=== PATIENT | female | born 1990 | race Caucasian/White ===

== ENCOUNTER 2016-03-13 14:32 | Inpatient (IN) | payer MEDICAID ==
[~2016-03-13] VITALS: Ht 149.9 cm; Wt 68.6 kg
[2016-03-13 14:51] VITALS: Ht 149.9 cm; Wt 68.6 kg
[2016-03-13] MEDS ORDERED: PRENAT PO (14:51)
[2016-03-13 14:52] VITALS: BP 102/57; PULSE 65; RESP 20
--- NOTE | 2016-03-13 15:10 | TRIAGE ---
OB Triage Datetime Report Generated by CPN: 03/13/2016 15:09 Datetime: 03/13/2016 14:58 Vaginal Exam Dilatation (cms): 2.0 Effacement (%): 50 Station: -3 Exam By: DAI Cervix, Consistency: Moderate Cervix, Position: Posterior Datetime: 03/13/2016 14:50 Assessment Type: Triage Maternal Assessment Level of Consciousness: Fully Conscious DTR's/Clonus: DTRs 2+; No Clonus Headache: Denies Blurred Vision: No Respiratory Effort: Unlabored; Regular Rhythm; Equal Expansion Breath Sounds, Left: Clear and Equal Breath Sounds, Right: Clear and Equal Nausea/Vomiting: Denies RUQ Epigastric Pain: Denies Lower Extremities Edema: None Degree: None Upper Extremities Edema: None Degree: None Facial Edema: None Fall Risk Assessment History of Falling: (0) No Secondary Diagnosis: (0) No Ambulatory Aid: (0) Bedrest/Nurse Assist IV Therapy: (0) No Gait: (0) Normal/Bedrest/Immobile Mental Status: (0) Oriented to Own Ability Fall Score: 0 Fall Risk Score Definition: No Risk: No action required Datetime: 01/11/2016 10:38 Stage of : OB Triage Maternal Assessment Level of Consciousness: Fully Conscious Headache: Denies Nausea/Vomiting: Denies RUQ Epigastric Pain: Present Pain Assessment Pain Scale: 0 Pain Goal: 0 Datetime: 01/11/2016 10:15 Heart Rate FHR Baseline Rate: 135 Monitor Mode: External US Variability: Moderate 6-25 bpm Accelerations: 15X15 Comments: ega 30.4 Datetime: 01/11/2016 10:13 Pain Presence: None/Denies Pain Assessment Comments: pt. now state she has 0/10 pain. Datetime: 01/11/2016 10:12 Labor Evaluation Monitor Mode: External Quality: Mild Resting Tone [place]: Relaxed Contraction Comments: some uc's noted when first on monitor. pt. denies uc's and now none palpated Datetime: 01/11/2016 10:03 Assessment Type: Triage Maternal Assessment Level of Consciousness: Fully Conscious DTR's/Clonus: DTRs 2+; No Clonus Headache: Denies Blurred Vision: No Respiratory Effort: Unlabored; Regular Rhythm; Equal Expansion Breath Sounds, Left: Clear and Equal Breath Sounds, Right: Clear and Equal Nausea/Vomiting: Denies RUQ Epigastric Pain: Denies Lower Extremities Edema: None Upper Extremities Edema: None Facial Edema: None Fall Risk Assessment History of Falling: (0) No Secondary Diagnosis: (0) No Ambulatory Aid: (0) Bedrest/Nurse Assist IV Therapy: (0) No Gait: (0) Normal/Bedrest/Immobile Mental Status: (0) Oriented to Own Ability Fall Score: 0 Fall Risk Score Definition: No Risk: No action required Datetime: 01/11/2016 10:01 Pain Assessment Pain Scale: 4 Pain Presence: Constant Pain Location: Abdomen Datetime: 01/11/2016 10:00 Time of Arrival: 03/13/2016 14:30 EGA: 39.3 Arrived By: Wheelchair Arrived From: Home Chief Complaint: c/o UC'S SINCE 299 Movement: Present Contractions: Regular Time Contractions Began: 03/13/2016 03:00 Rupture of Membranes: Denies Vaginal Bleeding: Scant Vaginal Discharge: Denies Recent Sexual Intercouse: Denies Abdominal Trauma: Not Applicable Patient Complaints: Contractions; Cramping; Back Pain Time Provider Notified: 03/13/2016 15:09 Provider Notified: LUISANA Initial Plan: EFM, SVE Datetime: 01/11/2016 09:59 Time of Arrival: 01/11/2016 09:40 Arrived By: Stretcher Arrived From: Emergency Dept Chief Complaint: rcvd. pt. via ambulance and states she has a history os gastritis and has not eliana en medications since 12/31/15. pt. state she take milk this a.m. and started to have epigastric pain . pt. states she has had pnc in [facility] and this past thursday at a hospital in [place]. all informati on takem via in demand stephanie# [id number] resolution rep Movement: Present Contractions: Denies/Absent Rupture of Membranes: Denies Vaginal Discharge: Denies Recent Sexual Intercouse: Denies Abdominal Trauma: Not Applicable Patient Complaints: Epigastric Pain
[2016-03-13] MEDS ORDERED: BUTORPHANOL 2 MG INJ IV PRN (16:00)
[2016-03-13] MEDS ORDERED: METHYLERGONOVINE 0.2 MG INJ IM PRN (16:00)
[2016-03-13] MEDS ORDERED: MISOPROSTOL 200 MCG TAB PR PRN (16:00)
[2016-03-13] MEDS ORDERED: IBUPROFEN 600 MG TAB PO PRN (16:00)
[2016-03-13] MEDS ORDERED: OXYTOCIN 30 UNITS/LR 500 ML IV PRN (16:00)
[2016-03-13] MEDS ORDERED: CARBOPROST 250 MCG INJ IM PRN (16:00)
[2016-03-13] MEDS ORDERED: LIDOCAINE 1% (MPF) 30 ML INJ INJ PRN (16:00)
[2016-03-13] MEDS: LACTATED RINGER'S 1,000 ML IV SCH ×2 (16:16→23:36)
[2016-03-13 17:07] LABS: BASOPHILS % 0.3 % (0.0-2.0); EOSINOPHILS # 0.1 10^3/ul (0.0-0.5); EOSINOPHILS % 1.2 % (0.0-7.0); HEMATOCRIT 36.1 % (37.0-47.0); HEMOGLOBIN 12.4 g/dl (12.0-16.0); LYMPHOCYTES # 1.2 10^3/ul (0.8-2.9); LYMPHOCYTES % 16.4 % (15.0-51.0); MEAN CORPUSCULAR HGB CONC 34.5 g/dl (32.0-37.0); MEAN PLATELET VOLUME 9.8 fl (7.4-10.4); MONOCYTE # 0.4 10^3/ul (0.3-0.9); MONOCYTES % 5.1 % (0.0-11.0); NEUTROPHIL # 5.6 10^3/ul (1.6-7.5); PLATELET COUNT 275 10^3/UL (140-440); RED BLOOD COUNT 4.01 10^6/ul (4.20-5.40); RED CELL DISTRIBUTION WIDTH 14.2 % (11.5-14.5); UNCORRECTED WBC 7.2 10^3/ul (4.8-10.8); WHITE BLOOD COUNT 7.2 10^3/ul (4.8-10.8)
[2016-03-13 17:13] LABS: CONDITION 1; INR 0.89; PT RATIO 0.9
[2016-03-13 17:15] LABS: PARTIAL THROMBOPLASTIN TIME 25.5 Sec (25.0-35.0)
[2016-03-13] MEDS ORDERED: AL HYDROX/MG HYDROX/SIMETH 30 ML CUP PO ONE (20:00)
--- NOTE | 2016-03-13 22:11 | RADRPT ---
PROCEDURE: US Obstetrical, limited CLINICAL INDICATION: positioning, and labor TECHNIQUE: Multiple real-time images were acquired of the patient's maternal abdomen utilizing a curved array transducer. COMPARISON: 01/21/2016 FINDINGS: There is a single live intrauterine fetus positioned cephalic. The placenta is implanted at the fundus and is grade 2. There is no placenta previa or abruptio. The cervical length was not measured. The heart rate is 161 beats per minute. IMPRESSION: 1. Single fetus, cephalic presentation. 2. Fundal placenta, grade 2, no previa. 3. heart rate being a 161 beats per minute Physician Ryanne Date Time Electronically viewed and signed by Physician Ryanne on 03/13/2016 22:10 /
[2016-03-14] MEDS: LACTATED RINGER'S 1,000 ML IV SCH (08:13)
[2016-03-14] MEDS ORDERED: OXYTOCIN 30 UNITS/LR 500 ML IV SCH ×3 (09:30→10:30)
[2016-03-14] MEDS: LACTATED RINGER'S 1,000 ML IV PRN ×2 (12:12→12:33)
[2016-03-14] MEDS ORDERED: FENTAnyl 2MCG/ML-ROPIV 0.2% 100 ML ONE (12:37)
--- NOTE | 2016-03-14 16:56 | LDN ---
Date/Time of Note Date/Time of Note DATE: 03/14/16 TIME: 16:50 Delivery Summary Normal spontaneous vaginal delivery of a baby boy from COBY position shoulder delivered without any difficulty followed with the rest of the baby's body, nasal oral pharyngeal suction baby handed to the team for immediate attention placenta spontaneous expulsion inspected complete patient states first -degree perineal laceration which was repaired 3-0 chromic catgut estimated blood loss 250 mL Placenta Delivered: Spontaneously Meconium: none Perineum intact?: No Perineal laceration repair: First-degree perineal laceration repaired with 3-0 chromic catgut Anesthesia type: Epidural Estimated blood loss: 250 Sponge & Needle done & correct: Yes Any foreign bodies felt in the: No Problems: Delivery Information Sex Sex: male Apgars 1 Minute: 8 5 Minute: 9 Suctioning Nose & mouth suctioned at carlos: Yes Delee suction performed: No Umbilical Cord Umbilical cord with: 3 Vessels Cord presentations: nuchal cord Cord Blood was obtained: Yes DALIA MCNEIL MD Mar 14, 2016 16:55
[2016-03-14 17:00] VITALS: BP 111/58; PULSE 72; RESP 20
--- NOTE | 2016-03-14 17:05 | HP ---
Date/Time of Note Date/Time of Note DATE: 03/14/16 TIME: 16:57 OB - History Hx of Present Free Text/Dictation This is a 30 mL years old planning female 2 para 1 39 weeks and 4 days with the EDC and early 2016 with a [facility] in active labor pelvic examination on admission cervical dilatation 6 cm 90% effacement vertex at -2 station contraction 3-4 minutes with strong quality patient is being admitted to the labor and delivery room for delivery Estimated Due Date: Mar 17, 2016 : 2 Para: 1 Care: Limited Care Ultrasounds: Normal mid trimester US Medical Complications: None Past Family/Social History * Past Medical, Surgical, Family and Obstetric Histories reviewed from chart. Rubella: immune RPR/VDRL: Negative GBS Status: Negative HBsAG: Negative OB Admission Exam Vital Signs Vital Signs Vital Signs Date Time Temp Pulse Resp B/P Pulse Ox O2 Delivery O2 Flow Rate FiO2 03/13/16 14:52 98.1 65 20 102/57 97 Room Air Last 72 hours Lab Results CBC & BMP 03/13/16 16:17 DALIA MCNEIL MD Mar 14, 2016 17:05
--- NOTE | 2016-03-14 17:09 | DELSUM ---
Delivery Summary A-C Datetime Report Generated by CPN: 03/14/2016 17:09 DELIVERY PERSONNEL Manager Strategic Partnerships: Ordona, May MATERNAL INFORMATION Delivery Anesthesia: Epidural Medications in Delivery: LR WITH PITOCIN 30 UNITS Estimated Blood Loss (ml): 300 Placenta Cultured: No Maternal Complications: None LABOR SUMMARY EDC: 03/17/2016 00:00 No. Babies in Womb: 1 Attempted: No Labor Anesthesia: Epidural LABOR INFORMATION Reason for Induction: Not Applicable Onset of Labor: 03/13/2016 03:00 Complete Dilatation: 03/14/2016 14:25 Oxytocin: Augmentation Group B Beta Strep: Negative Antibiotics # of Doses: 0 Antibiotics Time of Last Dose: 0 Steroids Given: None Reason Steroids Not Administered: Not Applicable MEMBRANES Membranes Rupture Method: Artificial Rupture of Membranes: 03/14/2016 08:59 Length of Rupture (hr): 5.80 Amniotic Fluid Color: Clear Amniotic Fluid Color: Clear Amniotic Fluid Amount: Small Amniotic Fluid Amount: Small Amniotic Fluid Odor: Normal Amniotic Fluid Odor: Normal STAGES OF LABOR Stage 1 hr: 35 Stage 1 min: 25 Stage 2 hr: 0 Stage 2 min: 22 Stage 3 hr: 0 Stage 3 min: 3 Total Time in Labor hr: 35 Total Time in Labor min: 50 VAGINAL DELIVERY Episiotomy: None Laceration Extension: Second Degree Laceration Type: Perineal Laceration Repair: Yes Initial Vag Sponge Count: 20 Final Vag Sponge Count: 20 Initial Vag Sharps Count: 1 Final Vag Sharps Count: 3 Sponge Count Correct: Yes Sharps Count Correct: Yes BABY A INFORMATION Delivery Date/Time: 03/14/2016 14:47 Method of Delivery: Vaginal Born in Route : No : N/A Forceps: N/A Vacuum Extraction: N/A Shoulder Dystocia : N/A SHOULDER DYSTOCIA BABY A Infant Delivery Date/Time: 03/14/2016 14:47 PRESENTATION/POSITION BABY A Presentation: Cephalic Presentation: Cephalic Presentation: Cephalic Cephalic Presentation: Vertex Vertex Position: Right Occipital Anterior Breech Presentation: N/A PLACENTA INFORMATION BABY A Placenta Delivery Time : 03/14/2016 14:50 Placenta Method of Delivery: Spontaneous Placenta Status: Delivered SCORES BABY A Heart Rate 1 min: >100 bpm Resp Effort 1 min: Good Cry Reflex Irritability 1 min: Cough/Sneeze/Pulls Away Muscle Tone 1 min: Active Motion Color 1 min: Blue/Pale Resuscitation Effort 1 min: Tactile Stimulation SCORE 1 MIN: 8 Heart Rate 5 min: >100 bpm Resp Effort 5 min: Good Cry Reflex Irritability 5 min: Cough/Sneeze/Pulls Away Muscle Tone 5 min: Active Motion Color 5 min: Body [place], Extremit Blue Resuscitation Effort 5 min: Tactile Stimulation SCORE 5 MIN: 9 INFANT INFORMATION BABY A Gestational Age at Delivery: 39.4 Gestational Status: Full Term- 39- 40.6 Weeks Infant Outcome : Liveborn Infant Condition : Stable Sex: Male IDENTIFICATION/MEDS BABY A ID Band Number: [id number] ID Band Location: Right Leg; Left Arm Sensor Applied: Yes Sensor Number: [id number] Sensor Location : Cord Clamp Vitamin K Given : Not Given Erythromycin Given: Not Given WEIGHT/LENGTH BABY A Infant Birthweight (gm): 3560 Weight (lb): 7 Infant Weight (oz): 14 Infant Length (in): 20.00 Length (cm): 50.80 CORD INFORMATION BABY A No. Cord Vessels: 3 Nuchal Cord : N/A Cord Blood Taken: Yes Suction: Mouth; Nose ASSESSMENT BABY A Complications: None Physical Findings at Delivery: Other Physical Findings- Other: BIRTHMARK RIGHT THIGH Respirations: Appears Normal Operator Cavity Pump/ALS Called : No Care By: BISHNU/ERROL Transferred To: Remains with Mother
--- NOTE | 2016-03-14 17:11 | DELSUM ---
Delivery Summary A-C Datetime Report Generated by CPN: 03/14/2016 17:11 DELIVERY PERSONNEL Fabric Worker Leader: Ordona, May MATERNAL INFORMATION Delivery Anesthesia: Epidural Medications in Delivery: LR WITH PITOCIN 30 UNITS Estimated Blood Loss (ml): 300 Placenta Cultured: No Maternal Complications: None LABOR SUMMARY EDC: 03/17/2016 00:00 No. Babies in Womb: 1 Attempted: No Labor Anesthesia: Epidural LABOR INFORMATION Reason for Induction: Not Applicable Onset of Labor: 03/13/2016 03:00 Complete Dilatation: 03/14/2016 14:25 Oxytocin: Augmentation Group B Beta Strep: Negative Antibiotics # of Doses: 0 Antibiotics Time of Last Dose: 0 Steroids Given: None Reason Steroids Not Administered: Not Applicable MEMBRANES Membranes Rupture Method: Artificial Rupture of Membranes: 03/14/2016 08:59 Length of Rupture (hr): 5.80 Amniotic Fluid Color: Clear Amniotic Fluid Color: Clear Amniotic Fluid Amount: Small Amniotic Fluid Amount: Small Amniotic Fluid Odor: Normal Amniotic Fluid Odor: Normal STAGES OF LABOR Stage 1 hr: 35 Stage 1 min: 25 Stage 2 hr: 0 Stage 2 min: 22 Stage 3 hr: 0 Stage 3 min: 3 Total Time in Labor hr: 35 Total Time in Labor min: 50 VAGINAL DELIVERY Episiotomy: None Laceration Extension: Second Degree Laceration Type: Perineal Laceration Repair: Yes Initial Vag Sponge Count: 20 Final Vag Sponge Count: 20 Initial Vag Sharps Count: 1 Final Vag Sharps Count: 3 Sponge Count Correct: Yes Sharps Count Correct: Yes BABY A INFORMATION Delivery Date/Time: 03/14/2016 14:47 Method of Delivery: Vaginal Born in Route : No : N/A Forceps: N/A Vacuum Extraction: N/A Shoulder Dystocia : N/A SHOULDER DYSTOCIA BABY A Infant Delivery Date/Time: 03/14/2016 14:47 PRESENTATION/POSITION BABY A Presentation: Cephalic Presentation: Cephalic Presentation: Cephalic Cephalic Presentation: Vertex Vertex Position: Right Occipital Anterior Breech Presentation: N/A PLACENTA INFORMATION BABY A Placenta Delivery Time : 03/14/2016 14:50 Placenta Method of Delivery: Spontaneous Placenta Status: Delivered SCORES BABY A Heart Rate 1 min: >100 bpm Resp Effort 1 min: Good Cry Reflex Irritability 1 min: Cough/Sneeze/Pulls Away Muscle Tone 1 min: Active Motion Color 1 min: Blue/Pale Resuscitation Effort 1 min: Tactile Stimulation SCORE 1 MIN: 8 Heart Rate 5 min: >100 bpm Resp Effort 5 min: Good Cry Reflex Irritability 5 min: Cough/Sneeze/Pulls Away Muscle Tone 5 min: Active Motion Color 5 min: Body [place], Extremit Blue Resuscitation Effort 5 min: Tactile Stimulation SCORE 5 MIN: 9 INFANT INFORMATION BABY A Gestational Age at Delivery: 39.4 Gestational Status: Full Term- 39- 40.6 Weeks Infant Outcome : Liveborn Infant Condition : Stable Sex: Male IDENTIFICATION/MEDS BABY A ID Band Number: [id number] ID Band Location: Right Leg; Left Arm Sensor Applied: Yes Sensor Number: [id number] Sensor Location : Cord Clamp Vitamin K Given : Not Given Erythromycin Given: Not Given WEIGHT/LENGTH BABY A Infant Birthweight (gm): 3560 Weight (lb): 7 Infant Weight (oz): 14 Infant Length (in): 20.00 Length (cm): 50.80 CORD INFORMATION BABY A No. Cord Vessels: 3 Nuchal Cord : N/A Cord Blood Taken: Yes Suction: Mouth; Nose ASSESSMENT BABY A Complications: None Physical Findings at Delivery: Other Physical Findings- Other: BIRTHMARK RIGHT THIGH Respirations: Appears Normal Social Staff Worker/ALS Called : No Care By: BISHNU/REROL Transferred To: Remains with Mother
--- NOTE | 2016-03-14 17:11 | OPRPT ---
Intraop Record Datetime Report Generated by CPN: 03/14/2016 17:11 Datetime: 03/14/2016 14:51 Sequential Compression Device: N/A Datetime: 01/11/2016 10:06 Drug Allergies/Reactions: No Known Allergy (01/11/2016) Datetime: 01/11/2016 10:00 Food Allergies/Reactions: nka Latex Allergies/Reactions: No Latex Allergies
[2016-03-14] MEDS ORDERED: BENZOCAINE 20% 56 ML SPRAY TOP PRN (17:30)
[2016-03-14] MEDS ORDERED: ACETAMINOPHEN 325 MG TAB PO PRN (17:30)
[2016-03-14] MEDS ORDERED: OXYCODONE/ASPIRIN (4.88/325) TAB PO PRN ×2 (17:30)
[2016-03-14] MEDS ORDERED: DIBUCAINE 1% 30 GM OINT PR PRN (17:30)
[2016-03-14] MEDS ORDERED: WITCH HAZEL/GLYCERIN PAD PR PRN (17:30)
[2016-03-14] MEDS ORDERED: LANOLIN 7 GM TUBE TOP PRN (17:30)
[2016-03-14] MEDS ORDERED: ONDANSETRON 4 MG INJ IV PRN (17:30)
[2016-03-14] MEDS ORDERED: ACETAMINOPHEN/CODEINE #3 TAB PO PRN (17:30)
[2016-03-14] MEDS: OXYTOCIN 30 UNITS/LR 500 ML IV SCH (17:46)
[2016-03-14] MEDS: IBUPROFEN 600 MG TAB PO SCH (17:46)
--- NOTE | 2016-03-14 19:52 | DELSUM ---
Delivery Summary A-C Datetime Report Generated by CPN: 03/14/2016 19:52 DELIVERY PERSONNEL Mail Censor: Ordona, May MATERNAL INFORMATION Delivery Anesthesia: Epidural Medications in Delivery: LR WITH PITOCIN 30 UNITS Estimated Blood Loss (ml): 300 Placenta Cultured: No Maternal Complications: None LABOR SUMMARY EDC: 03/17/2016 00:00 No. Babies in Womb: 1 Attempted: No Labor Anesthesia: Epidural LABOR INFORMATION Reason for Induction: Not Applicable Onset of Labor: 03/13/2016 03:00 Complete Dilatation: 03/14/2016 14:25 Oxytocin: Augmentation Group B Beta Strep: Negative Antibiotics # of Doses: 0 Antibiotics Time of Last Dose: 0 Steroids Given: None Reason Steroids Not Administered: Not Applicable MEMBRANES Membranes Rupture Method: Artificial Rupture of Membranes: 03/14/2016 08:59 Length of Rupture (hr): 5.80 Amniotic Fluid Color: Clear Amniotic Fluid Color: Clear Amniotic Fluid Amount: Small Amniotic Fluid Amount: Small Amniotic Fluid Odor: Normal Amniotic Fluid Odor: Normal STAGES OF LABOR Stage 1 hr: 35 Stage 1 min: 25 Stage 2 hr: 0 Stage 2 min: 22 Stage 3 hr: 0 Stage 3 min: 3 Total Time in Labor hr: 35 Total Time in Labor min: 50 VAGINAL DELIVERY Episiotomy: None Laceration Extension: Second Degree Laceration Type: Perineal Laceration Repair: Yes Initial Vag Sponge Count: 20 Final Vag Sponge Count: 20 Initial Vag Sharps Count: 1 Final Vag Sharps Count: 3 Sponge Count Correct: Yes Sharps Count Correct: Yes BABY A INFORMATION Delivery Date/Time: 03/14/2016 14:47 Method of Delivery: Vaginal Born in Route : No : N/A Forceps: N/A Vacuum Extraction: N/A Shoulder Dystocia : N/A SHOULDER DYSTOCIA BABY A Infant Delivery Date/Time: 03/14/2016 14:47 PRESENTATION/POSITION BABY A Presentation: Cephalic Presentation: Cephalic Presentation: Cephalic Cephalic Presentation: Vertex Vertex Position: Right Occipital Anterior Breech Presentation: N/A PLACENTA INFORMATION BABY A Placenta Delivery Time : 03/14/2016 14:50 Placenta Method of Delivery: Spontaneous Placenta Status: Delivered SCORES BABY A Heart Rate 1 min: >100 bpm Resp Effort 1 min: Good Cry Reflex Irritability 1 min: Cough/Sneeze/Pulls Away Muscle Tone 1 min: Active Motion Color 1 min: Blue/Pale Resuscitation Effort 1 min: Tactile Stimulation SCORE 1 MIN: 8 Heart Rate 5 min: >100 bpm Resp Effort 5 min: Good Cry Reflex Irritability 5 min: Cough/Sneeze/Pulls Away Muscle Tone 5 min: Active Motion Color 5 min: Body [place], Extremit Blue Resuscitation Effort 5 min: Tactile Stimulation SCORE 5 MIN: 9 INFANT INFORMATION BABY A Gestational Age at Delivery: 39.4 Gestational Status: Full Term- 39- 40.6 Weeks Infant Outcome : Liveborn Infant Condition : Stable Sex: Male IDENTIFICATION/MEDS BABY A ID Band Number: [id number] ID Band Location: Right Leg; Left Arm Sensor Applied: Yes Sensor Location : Cord Clamp Vitamin K Given : Not Given Erythromycin Given: Not Given WEIGHT/LENGTH BABY A Infant Birthweight (gm): 3560 Infant Weight (lb): 7 Weight (oz): 14 Length (in): 20.00 Length (cm): 50.80 CORD INFORMATION BABY A No. Cord Vessels: 3 Nuchal Cord : N/A Cord Blood Taken: Yes Infant Suction: Mouth; Nose ASSESSMENT BABY A Complications: None Physical Findings at Delivery: Other Physical Findings- Other: BIRTHMARK RIGHT THIGH Infant Respirations: Appears Normal Group Leader Semiconductor Testing/ALS Called : No Infant Care By: BISHNU/ERROL Transferred To: Remains with Mother
[2016-03-14 20:00] VITALS: BP 88/56; PULSE 66; RESP 20
[2016-03-14] MEDS: SENNA/DOCUSATE NA (8.6MG/50MG) TAB PO SCH (21:00)
[2016-03-15] VITALS: BP 92/88; PULSE 70; RESP 18
[2016-03-15] MEDS: IBUPROFEN 600 MG TAB PO SCH ×4 (00:10→17:55)
[2016-03-15] MEDS: OXYTOCIN 30 UNITS/LR 500 ML IV SCH (00:14)
[2016-03-15 04:00] VITALS: BP 89/42; PULSE 76; RESP 18
[2016-03-15 07:59] LABS: BASOPHILS % 0.3 % (0.0-2.0); EOSINOPHILS % 0.4 % (0.0-7.0); HEMATOCRIT 31.4 % (37.0-47.0); LYMPHOCYTES # 1.5 10^3/ul (0.8-2.9); LYMPHOCYTES % 17.5 % (15.0-51.0); MEAN CORPUSCULAR HEMOGLOBIN 31.7 pg (29.0-33.0); MEAN CORPUSCULAR HGB CONC 35.1 g/dl (32.0-37.0); MEAN CORPUSCULAR VOLUME 90.4 fl (82.0-101.0); MONOCYTE # 0.6 10^3/ul (0.3-0.9); MONOCYTES % 6.8 % (0.0-11.0); NEUTROPHIL # 6.5 10^3/ul (1.6-7.5); PLATELET COUNT 233 10^3/UL (140-440); RED BLOOD COUNT 3.47 10^6/ul (4.20-5.40); RED CELL DISTRIBUTION WIDTH 14.1 % (11.5-14.5); UNCORRECTED WBC 8.7 10^3/ul (4.8-10.8); WHITE BLOOD COUNT 8.7 10^3/ul (4.8-10.8)
[2016-03-15 08:10] LABS: CONDITION 1
[2016-03-15] MEDS: SENNA/DOCUSATE NA (8.6MG/50MG) TAB PO SCH (08:56)
[2016-03-15 11:48] VITALS: BP 89/52; PULSE 79; RESP 16
--- NOTE | 2016-03-15 14:51 | PN ---
Date/Time of Note Date/Time of Note DATE: 03/15/16 TIME: 14:50 OB Subjective Subjective Subjective Post normal vaginal delivery day 1 Vital sign is stable afebrile abdomen soft uterus firm lochia normal extremity normal DALIA MCNEIL MD Mar 15, 2016 14:51
[2016-03-15 16:03] VITALS: BP 96/50; PULSE 72; RESP 16
[2016-03-15 20:00] VITALS: BP 96/51; PULSE 81; RESP 20
[2016-03-16] MEDS: SENNA/DOCUSATE NA (8.6MG/50MG) TAB PO SCH ×2 (00:16→09:00)
[2016-03-16] MEDS: IBUPROFEN 600 MG TAB PO SCH ×3 (00:16→12:58)
[2016-03-16 04:00] VITALS: BP 98/54; PULSE 64; RESP 16
[2016-03-16 08:45] VITALS: BP 93/51; PULSE 69; RESP 18
[2016-03-16] MEDS ORDERED: MEASLES,MUMPS,RUBELLA VACCINE INJ SC* ONE (09:00)
--- NOTE | 2016-03-16 12:27 | PD.PPDC ---
MEDICAL/SURGERY REGISTERED NURSE Discharge Instruction Condition Patient Condition: Good Diet Diet: Resume Regular Diet Wound/Drain Care Instructions Wound/Drain Care Instructions: Wash with soap and water Keep clean and dry Follow-up Follow-up with Physician: 2, Week/Weeks Return to clinic for CLINICAL PSYCHOLOGY TEACHER Instructions: Fever greater than 101 Worsening abdominal pain Excessive Vaginal Bleeding More than 2 pads per hour Unable to tolerate diet OB Instructions: Breast Tenderness Blurried Vision Headache DALIA MCNEIL MD Mar 16, 2016 12:27
--- NOTE | 2016-03-16 12:30 | DS ---
Date/Time of Note Date/Time of Note DATE: 03/16/16 TIME: 12:28 Obstetrical Discharge Record Final Diagnosis Final Diagnosis: Term delivered Vaginal Delivery Obstetrical Delivery: Spontaneous Condition on Discharge Physical Assessment Last Vitals: Post normal vaginal delivery day 2 Afebrile vital sign stable abdomen soft uterus firm lochia normal extremity normal. Patient discharged home with follow-up instruction an appointment to the office in 2 weeks Voiding: Yes Bowel Movement: Yes Breast: Soft, non-tender, Filling Fundus: Firm Calf Tenderness: No Patient Condition: Good DALIA MCNEIL MD Mar 16, 2016 12:30
== END 2016-03-16 15:15 | disposition home or self-care (01) | DRG 775 ==
LOC: OBT 14:32 → L-D 14:33 → OBT 15:05 → L-D 15:05 → PP1 03-14 17:02
PROVIDERS: ADMIT Obstetrics & Gynecology; ATTEND Obstetrics & Gynecology
PROC: 10E0XZZ Delivery of Products of Conception, External Approach (ICD-10-PCS; principal; 2016-03-14)
PROC: 0HQ9XZZ Repair Perineum Skin, External Approach (ICD-10-PCS; 2016-03-14)
DX: O69.81X0 Labor and delivery complicated by cord around neck, without compression, not applicable or unspecified (principal); O70.0 First degree perineal laceration during delivery; Z3A.39 39 weeks gestation of pregnancy; Z37.0 Single live birth
CPT/HCPCS: 62319; 76815; 85025; 85610; 85730; 86592; 86900; 86901; 99464; G0463; J2590; J3010; J7120